=== PATIENT | male | born 1980 | race Caucasian/White ===

== ENCOUNTER 2019-10-09 11:10 | Emergency (ER) | payer BC ==
[~2019-10-09] VITALS: Ht 175.3 cm; Wt 79.4 kg
[2019-10-09 16:00] VITALS: BP 119/80
== END 2019-10-09 16:00 | disposition home or self-care (01) ==
LOC: ED 11:10
DX: S30.0XXA Contusion of lower back and pelvis, initial encounter (principal); S50.02XA Contusion of left elbow, initial encounter; S50.812A Abrasion of left forearm, initial encounter; W06.XXXA Fall from bed, initial encounter; Y93.89 Activity, other specified; Y92.89 Other specified places as the place of occurrence of the external cause; Y99.8 Other external cause status
CPT/HCPCS: 90715; J1885